=== PATIENT | male | born 1965 | race Caucasian/White ===

== ENCOUNTER 2017-04-08 23:54 | Emergency (ER) | payer BC ==
[2017-04-09 00:04] VITALS: BP 164/110
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
== END 2017-04-09 01:17 | disposition left against medical advice (07) ==
LOC: JD.ED 23:54
DX: S01.112A Laceration without foreign body of left eyelid and periocular area, initial encounter (principal); S09.90XA Unspecified injury of head, initial encounter; F41.9 Anxiety disorder, unspecified; Z79.899 Other long term (current) drug therapy; Y04.0XXA Assault by unarmed brawl or fight, initial encounter
CPT/HCPCS: 99283; 99284

== ENCOUNTER 2025-02-24 08:06 | Emergency (ER) | payer BC ==
[2025-02-24 09:11] VITALS: BP 124/100; PULSE 86
== END 2025-02-24 09:05 | disposition home or self-care (01) ==
LOC: JD.ED 08:06
DX: F41.9 Anxiety disorder, unspecified (principal); I10 Essential (primary) hypertension; E03.9 Hypothyroidism, unspecified; E66.9 Obesity, unspecified; Z87.891 Personal history of nicotine dependence; Z79.899 Other long term (current) drug therapy; Z79.890 Hormone replacement therapy; Z68.37 Body mass index [BMI] 37.0-37.9, adult
CPT/HCPCS: 99283